=== PATIENT | male | born 1970 | race Caucasian/White ===

== ENCOUNTER → 2021-02-14 | Outpatient (CLI) | payer OTHER | LOC: KOH-I 13:34 | DX: M25.561 Pain in right knee (principal); S83.241A Other tear of medial meniscus, current injury, right knee, initial encounter; S83.511A Sprain of anterior cruciate ligament of right knee, initial encounter; M17.11 Unilateral primary osteoarthritis, right knee; M94.261 Chondromalacia, right knee | CPT/HCPCS: 73721 ==

== ENCOUNTER 2021-04-17 14:56 | Emergency (ER) | payer OTHER ==
[2021-04-17] MEDS ORDERED: CEPHALEXIN500 M1 PO (17:27)
[2021-04-17] MEDS ORDERED: HYDROCODON-ACE1 EAC4 PO (17:27)
[2021-04-19] MEDS ORDERED: ZYRTEC10 M3 PO (10:37)
[2021-04-19] MEDS ORDERED: IBUPROFEN400 MG PO (10:38)
[2021-04-19] MEDS ORDERED: CEPHALEXIN500 MG PO (15:34)
[2021-04-19] MEDS ORDERED: HYDROCODON-ACE1 EAC6 PO (15:34)
== END 2021-04-17 18:10 | disposition home or self-care (01) ==
LOC: ER1 14:56
DX: S62.600A Fracture of unspecified phalanx of right index finger, initial encounter for closed fracture (principal); S56.421A Laceration of extensor muscle, fascia and tendon of right index finger at forearm level, initial encounter; Z23 Encounter for immunization; W31.89XA Contact with other specified machinery, initial encounter
CPT/HCPCS: 29130; 73130; 90471; 90715; 96372; 99283; J0690

== ENCOUNTER → 2021-04-19 | Day surgery (SDC) | payer OTHER ==
[~2021-04-19] VITALS: Ht 185.4 cm; Wt 120.2 kg
[~2021-04-19] MED LIST: CEPHALEXIN500 M1 PO; CEPHALEXIN500 MG PO; HYDROCODON-ACE1 EAC4 PO; HYDROCODON-ACE1 EAC6 PO; IBUPROFEN400 MG PO; ZYRTEC10 M3 PO
== END | disposition home or self-care (01) ==
LOC: OR 09:30
DX: S66.320A Laceration of extensor muscle, fascia and tendon of right index finger at wrist and hand level, initial encounter (principal); S61.210A Laceration without foreign body of right index finger without damage to nail, initial encounter; W31.1XXA Contact with metalworking machines, initial encounter; Z79.2 Long term (current) use of antibiotics; Z79.1 Long term (current) use of non-steroidal anti-inflammatories (NSAID); Z79.899 Other long term (current) drug therapy; Z20.822 Contact with and (suspected) exposure to COVID-19; Z80.42 Family history of malignant neoplasm of prostate; Z82.49 Family history of ischemic heart disease and other diseases of the circulatory system
CPT/HCPCS: J0690; J1100; J1885; J2001; J2250; J2405; J2704; J3010; J3370; J7120; U0002

== ENCOUNTER → 2021-06-12 | Outpatient (CLI) | payer OTHER | LOC: KOH-I 10:55 | DX: M54.16 Radiculopathy, lumbar region (principal); M43.06 Spondylolysis, lumbar region | CPT/HCPCS: 72100 ==